=== PATIENT | female | born 1985 ===

== ENCOUNTER 2019-09-20 00:42 | Inpatient (IN) | payer MEDICAID, OTHER ==
[~2019-09-20] VITALS: Ht 152.4 cm; Wt 57.0 kg
[2019-09-20] MEDS ORDERED: QUEtiapine FUMARATE 100 MG TABLET PO PRN (01:45)
[2019-09-20 03:15] VITALS: BP 113/86
[2019-09-20] MEDS ORDERED: DOCUSATE SODIUM 100 MG CAPSULE PO PRN ×2 (03:15→11:45)
[2019-09-20] MEDS ORDERED: LOPERAMIDE HCL 2 MG CAPSULE PO PRN ×2 (03:15→11:45)
[2019-09-20] MEDS ORDERED: ALBUTEROL SULFATE HFA 90 MCG/PUFF 8 GM INHALER IH PRN ×2 (03:15→11:45)
[2019-09-20] MEDS ORDERED: ACETAMINOPHEN 325 MG TABLET PO PRN ×2 (03:15→11:45)
[2019-09-20] MEDS ORDERED: GuaiFENesin/D-METHORPHAN [SUGAR-FREE] 200-20MG/10 ML SYRUP UDCUP PO PRN ×2 (03:15→11:45)
[2019-09-20] MEDS ORDERED: MAGNESIUM HYDROXIDE SUSPENSION 30 ML UDCUP PO PRN ×2 (03:15→11:45)
[2019-09-20] MEDS ORDERED: MAG HYDROX/AL HYDROX/SIMETH ES 30 ML SUSPENSION UDCUP PO PRN ×2 (03:15→11:45)
[2019-09-20] MEDS ORDERED: CloNIDine HCL 0.1 MG TABLET PO PRN ×2 (03:15→11:45)
[2019-09-20] MEDS ORDERED: ONDANSETRON HCL 4 MG TABLET PO PRN ×2 (03:15→11:45)
[2019-09-20] MEDS ORDERED: NICOTINE 14 MG/24 HOUR PATCH TD PRN ×2 (03:15→11:45)
[2019-09-20] MEDS ORDERED: IBUPROFEN 400 MG TABLET PO PRN (03:15)
[2019-09-20] MEDS ORDERED: PETROLATUM,WHITE 28 GM JELLY TP PRN ×2 (03:15→11:45)
[2019-09-20] MEDS ORDERED: INFLUENZA VIRUS VACCINE QVS 2019-20 (3YR+)/PF 60 MCG/0.5 ML SYRINGE IM ONE (05:30)
[2019-09-20 07:05] LABS: BASOPHILS % (AUTO) 0.9 % (0.0-2.0); HEMATOCRIT 35.8 % (36-46); HEMOGLOBIN 12.3 g/dL (12.0-16.0); LYMPHOCYTES # (AUTO) 2.8 K/uL (1.0-4.8); LYMPHOCYTES % (AUTO) 31.9 % (22.0-44.0); MEAN CORPUSCULAR HEMOGLOBIN 30.5 pg (26.0-34.0); MEAN CORPUSCULAR HGB CONC 34.5 G/dL (31.0-37.0); MEAN CORPUSCULAR VOLUME 89 fL (80-100); MONOCYTES # (AUTO) 0.7 K/uL (0.1-1.0); MONOCYTES % (AUTO) 7.9 % (2.0-9.0); NEUTROPHILS # (AUTO) 4.9 K/uL (1.8-7.7); NEUTROPHILS % (AUTO) 56.3 % (40.0-70.0); PLATELET COUNT (AUTO) 273 K/uL (150-450); RED BLOOD CELL COUNT(AUTO) 4.04 MIL/uL (4.00-5.20); RED CELL DISTRIBUTION WIDTH 14.7 % (11.5-14.5)
[2019-09-20] MEDS ORDERED: GABA-531 PO (07:30)
[2019-09-20] MEDS ORDERED: ALPR0.5T8 PO (07:30)
[2019-09-20] MEDS ORDERED: PROG100C11 PO (07:30)
[2019-09-20] MEDS ORDERED: TRAZ-252 PO (07:30)
[2019-09-20 07:33] LABS: HEMOGLOBIN A1C 5.4 % (4.5-6.2)
[2019-09-20 07:35] LABS: APPEARANCE,URINE CLEAR (CLEAR); BILIRUBIN,URINE NEGATIVE (NEGATIVE); GLUCOSE, URINE (UA) NEGATIVE (NEGATIVE); KETONES,URINE NEGATIVE (NEGATIVE); LEUKOCYTE ESTERASE ,URINE NEGATIVE (NEGATIVE); NITRATE,URINE NEGATIVE (NEGATIVE); OCCULT BLOOD,URINE NEGATIVE (NEGATIVE); PROTEIN,URINE NEGATIVE (NEGATIVE); UROBILINOGEN,URINE 0.2 mg/dL (<=1.0)
[2019-09-20 07:40] LABS: AMPHET/METH SCREEN,URINE NEGATIVE (NEGATIVE); BARBITURATE SCREEN, URINE NEGATIVE (NEGATIVE); BENZODIAZEPINES SCREEN,URINE NEGATIVE (NEGATIVE); CANNABINOID SCREEN,URINE NEGATIVE (NEGATIVE); COCAINE SCREEN,URINE POSITIVE (NEGATIVE); METHADONE SCREEN, URINE NEGATIVE (NEGATIVE); OPIATE SCREEN,URINE POSITIVE (NEGATIVE)
[2019-09-20 07:42] LABS: PHENCYCLIDINE SCREEN,URINE NEGATIVE (NEGATIVE)
[2019-09-20 07:45] LABS: ALANINE AMINOTRANSFERASE 22 U/L (12-78); ALBUMIN 3.7 g/dL (3.4-5.0); ALKALINE PHOSPHATASE 49 U/L (46-116); ANION GAP 7 mmol/L (8-16); ASPARTATE AMINOTRANSFERASE 20 U/L (15-37); BILIRUBIN,TOTAL 0.3 mg/dL (0.1-1.0); CALCIUM, TOTAL 8.5 mg/dL (8.8-10.5); CARBON DIOXIDE 28 mmol/L (22-29); CHLORIDE 102 mmol/L (98-107); CHOL/HDL RATIO 2.6 (3.9-5.7); CHOLESTEROL 134 mg/dL (131-200); CREATININE 0.69 mg/dL (0.60-1.30); FREE T4 (FREE THYROXINE) 0.87 ng/dL (0.76-1.46); GLOMERULAR FILTR. RATE CALC > 60 mL/min (>60); GLUCOSE,RANDOM 79 mg/dL (70-110); HCG,QUANTITATIVE < 1 mIU/mL (0-6); HDL CHOLESTEROL 52 mg/dL (40-60); LDL CHOL (CALC.) 52 mg/dL (0-130); POTASSIUM 3.8 mmol/L (3.5-5.1); SODIUM SERUM 137 mmol/L (136-145); THYROID STIMULATING HORMONE 2.01 uIU/mL (0.36-3.74); TOTAL PROTEIN, SERUM 6.7 g/dL (6.4-8.2); TRIGLYCERIDES 152 mg/dL (15-150); UREA NITROGEN, BLOOD 8 mg/dL (7-18)
[2019-09-20 08:17] VITALS: BP 120/68
[2019-09-20] MEDS: GABAPENTIN 300 MG CAPSULE PO SCH ×3 (08:21→17:07)
[2019-09-20] MEDS: LORazepam 2 MG TABLET PO PRN ×3 (08:25→22:00)
[2019-09-20] MEDS: DULoxetine HCL 20 MG CAPSULE PO SCH (10:17)
[2019-09-20] MEDS ORDERED: GABAPENTIN 300 MG CAPSULE PO SCH (13:00)
[2019-09-20] MEDS: NORETHINDRONE 0.35 MG PO SCH (15:47)
[2019-09-20 16:08] VITALS: BP 137/81
[2019-09-21 02:12] VITALS: BP 136/70
[2019-09-21] MEDS: IBUPROFEN 400 MG TABLET PO PRN (04:45)
[2019-09-21] MEDS: LORazepam 2 MG TABLET PO PRN ×3 (04:45→22:17)
[2019-09-21 07:28] LABS: BASOPHILS % (AUTO) 0.6 % (0.0-2.0); EOSINOPHILS % (AUTO) 2.8 % (1.0-6.0); HEMOGLOBIN 12.6 g/dL (12.0-16.0); LYMPHOCYTES # (AUTO) 1.7 K/uL (1.0-4.8); LYMPHOCYTES % (AUTO) 26.7 % (22.0-44.0); MEAN CORPUSCULAR HEMOGLOBIN 30.2 pg (26.0-34.0); MEAN CORPUSCULAR HGB CONC 33.9 G/dL (31.0-37.0); MEAN CORPUSCULAR VOLUME 89 fL (80-100); MONOCYTES # (AUTO) 0.6 K/uL (0.1-1.0); MONOCYTES % (AUTO) 9.8 % (2.0-9.0); NEUTROPHILS # (AUTO) 3.9 K/uL (1.8-7.7); NEUTROPHILS % (AUTO) 60.1 % (40.0-70.0); PLATELET COUNT (AUTO) 280 K/uL (150-450); RED BLOOD CELL COUNT(AUTO) 4.16 MIL/uL (4.00-5.20); RED CELL DISTRIBUTION WIDTH 14.6 % (11.5-14.5)
[2019-09-21] MEDS: NORETHINDRONE 0.35 MG PO SCH (08:02)
[2019-09-21] MEDS: DULoxetine HCL 20 MG CAPSULE PO SCH (08:03)
[2019-09-21] MEDS: GABAPENTIN 300 MG CAPSULE PO SCH ×3 (08:03→16:25)
[2019-09-21 08:13] VITALS: BP 125/81
[2019-09-21] MEDS ORDERED: [UNRECOGNIZED DRUG - OTHER] PO SCH (09:00)
[2019-09-21 16:05] VITALS: BP 121/79
[2019-09-21] MEDS: ZOLPIDEM TARTRATE 10 MG TABLET PO PRN (21:21)
[2019-09-22 04:19] VITALS: BP 114/81
[2019-09-22] MEDS: LORazepam 2 MG TABLET PO PRN ×3 (04:27→19:54)
[2019-09-22] MEDS: GABAPENTIN 300 MG CAPSULE PO SCH ×3 (08:26→16:42)
[2019-09-22] MEDS: NORETHINDRONE 0.35 MG PO SCH (08:26)
[2019-09-22] MEDS: DULoxetine HCL 20 MG CAPSULE PO SCH (08:26)
[2019-09-22 16:15] VITALS: BP 135/80
[2019-09-22] MEDS: ZOLPIDEM TARTRATE 10 MG TABLET PO PRN (21:25)
[2019-09-22] MEDS ORDERED: DULO20CA30 PO (22:22)
[2019-09-23 05:13] VITALS: BP 121/75
[2019-09-23 08:10] VITALS: BP 123/71
[2019-09-23] MEDS ORDERED: NORE0.3520 PO (08:30)
[2019-09-23] MEDS: GABAPENTIN 300 MG CAPSULE PO SCH ×2 (08:31→12:09)
[2019-09-23] MEDS: DULoxetine HCL 20 MG CAPSULE PO SCH (08:31)
[2019-09-23] MEDS: NORETHINDRONE 0.35 MG PO SCH (08:31)
[2019-09-23] MEDS: LORazepam 2 MG TABLET PO PRN ×2 (08:31→12:40)
[2019-09-23] MEDS: IBUPROFEN 400 MG TABLET PO PRN (09:55)
[2019-09-23] MEDS ORDERED: DULO20CA30 PO (12:58)
[2019-09-23] MEDS ORDERED: GABA-531 PO (12:58)
== END 2019-09-23 13:25 | disposition home or self-care (01) | DRG 885 ==
LOC: B2S 01:00
DX: F33.2 Major depressive disorder, recurrent severe without psychotic features (principal); K50.90 Crohn's disease, unspecified, without complications; R45.851 Suicidal ideations; F14.10 Cocaine abuse, uncomplicated; F11.10 Opioid abuse, uncomplicated; N80.9 Endometriosis, unspecified; E78.5 Hyperlipidemia, unspecified; F10.10 Alcohol abuse, uncomplicated; Y90.9 Presence of alcohol in blood, level not specified; F41.9 Anxiety disorder, unspecified; Z23 Encounter for immunization
CPT/HCPCS: 83036; 84439; 84443; 90686; Q0162